=== PATIENT | male | born 1960 | race Two or more races ===

== ENCOUNTER → 2017-06-28 | Outpatient (REF) | payer BC ==
[2017-06-28 12:48] LABS: MEAN CORPUSCULAR HEMOGLOBIN 29.5 pg (27.0-33.0); MEAN CORPUSCULAR HGB CONC 33.3 g/dl (32.0-36.5); MEAN CORPUSCULAR VOLUME 88.7 fl (80.0-96.0); RED CELL DISTRIBUTION WIDTH 12.8 % (11.5-14.5); WHITE BLOOD COUNT 4.9 10^3/uL (4.0-10.0)
[2017-06-28 13:45] LABS: ALBUMIN/GLOBULIN RATIO 1.25 (1.00-1.93); ALKALINE PHOSPHATASE 108 U/L (45-117); ALT/SGPT 41 U/L (12-78); ANION GAP 4 MEQ/L (8-16); AST/SGOT 23 U/L (15-37); BILIRUBIN,TOTAL 0.7 MG/DL (0.2-1.0); BLOOD UREA NITROGEN 22 MG/DL (7-18); CALCIUM LEVEL 9.4 MG/DL (8.5-10.1); CARBON DIOXIDE LEVEL 32 MEQ/L (21-32); CHLORIDE LEVEL 107 MEQ/L (98-107); CHOLESTEROL LEVEL 217 MG/DL (<200); CREATININE FOR GFR 1.22 MG/DL (0.70-1.30); FREE T4 0.87 NG/DL (0.76-1.46); GLOMERULAR FILTRATION RATE > 60.0 (>56); GLUCOSE, FASTING 106 MG/DL (70-105); POTASSIUM SERUM 4.3 MEQ/L (3.5-5.1); SODIUM LEVEL 143 MEQ/L (136-145); TOTAL PROTEIN 7.2 GM/DL (6.4-8.2); TRIGLYCERIDES LEVEL 223 MG/DL (<150)
== END ==
LOC: M SFHCADAM 09:48
PROVIDERS: ATTEND Physician Assistant
DX: I10 Essential (primary) hypertension (principal); R10.13 Epigastric pain; Z13.220 Encounter for screening for lipoid disorders

== ENCOUNTER 2017-08-15 10:57 | Day surgery (SDC) | payer BC ==
[~2017-08-15] VITALS: Ht 172.7 cm; Wt 81.2 kg
[~2017-08-15 10:57] MED LIST: AMLO25TA PO; ATOR40TA75 PO
[2017-08-15] MEDS ORDERED: NS 1,000 ML IV ONE (11:15)
[2017-08-15] MEDS ORDERED: fentaNYL 100 MCG/2 ML INJECTION (J3010) As Ordered ONE (11:30)
[2017-08-15] MEDS ORDERED: LIDOCAINE 2% INJ 100 MG/5 ML SDV (FOR ANES.) As Ordered ONE (11:31)
[2017-08-15] MEDS ORDERED: PROPOFOL 200 MG/20 ML VIAL As Ordered ONE ×2 (11:31→11:57)
--- NOTE | 2017-08-15 11:49 | ROOR ---
Patient Name: Alex Berman Procedure Date: 08/15/2017 11:24 AM Date of : 1960 Age: 57 Room: [facility] Gender: Male Note Status: Finalized Procedure: Upper GI endoscopy Indications: Heartburn Providers: Randy AVENDAÑO MD Referring MD: DEAN Dominguez Requesting Provider: Medicines: Monitored Anesthesia Care Complications: No immediate complications. Procedure: Pre-Anesthesia Assessment: - The heart rate, respiratory rate, oxygen saturations, blood pressure, adequacy of pulmonary ventilation, and response to care were monitored throughout the procedure. The Endoscope was introduced through the mouth, and advanced to the second part of duodenum. The upper GI endoscopy was accomplished without difficulty. The patient tolerated the procedure well. Findings: There were esophageal mucosal changes suspicious for long-segment Pruitt's esophagus present in the lower third of the esophagus. The maximum longitudinal extent of these mucosal changes was 5 cm in length. Mucosa was biopsied with a cold forceps for histology randomly in the lower third of the esophagus and from 28 to 33 cm from the incisors. A total of 4 specimen bottles were sent to pathology. A medium-sized hiatal hernia was present. The entire examined stomach was normal. The examined duodenum was normal. Impression: - Esophageal mucosal changes suspicious for 5 cm long-segment Pruitt's esophagus. (smooth, no nodularity) Biopsied. - Medium-sized hiatal hernia. - Normal stomach. - Normal examined duodenum. Recommendation: - Use Prilosec (omeprazole) 20 mg twice a day for the rest of the patient's life. - Telephone endoscopist for pathology results in 2 weeks. - Repeat upper endoscopy in 3 years for surveillance. - (the script was sent to your pharmacy on file) Randy Avendaño MD Randy AVENDAÑO MD 08/15/2017 11:48:21 AM This report has been signed electronically. Number of Addenda: 0 Note Initiated On: 08/15/2017 11:24 AM Estimated Blood Loss: Estimated blood loss: none.
--- NOTE | 2017-08-15 12:01 | ROOR ---
Patient Name: Alex Berman Procedure Date: 08/15/2017 11:25 AM Date of : 1960 Age: 57 Room: [facility] Gender: Male Note Status: Finalized Procedure: Colonoscopy Indications: Screening for colorectal malignant neoplasm Providers: Randy JUDGE MD Referring MD: DEAN Dominguez Requesting Provider: Medicines: Monitored Anesthesia Care Complications: No immediate complications. Procedure: Pre-Anesthesia Assessment: - The heart rate, respiratory rate, oxygen saturations, blood pressure, adequacy of pulmonary ventilation, and response to care were monitored throughout the procedure. The Colonoscope was introduced through the anus and advanced to the cecum, identified by appendiceal orifice and ileocecal valve. The colonoscopy was performed without difficulty. The patient tolerated the procedure well. The quality of the bowel preparation was good. Findings: The perianal and digital rectal examinations were normal. Three sessile polyps were found in the hepatic flexure and ascending colon. The polyps were 3 to 5 mm in size. These polyps were removed with a cold snare. Resection and retrieval were complete. A 4 mm polyp was found in the sigmoid colon. The polyp was sessile. The polyp was removed with a cold snare. Resection and retrieval were complete. Small Internal Hemorrhoids. The exam was otherwise without abnormality on direct and retroflexion views. Impression: - Three 3 to 5 mm polyps at the hepatic flexure and in the ascending colon, removed with a cold snare. Resected and retrieved. - One 4 mm polyp in the sigmoid colon, removed with a cold snare. Resected and retrieved. - Small Internal Hemorrhoids. - The examination was otherwise normal on direct and retroflexion views. Recommendation: - Repeat colonoscopy in 3 years for surveillance. Randy Judge MD Randy JUDGE MD 08/15/2017 12:00:58 PM This report has been signed electronically. Number of Addenda: 0 Note Initiated On: 08/15/2017 11:25 AM Estimated Blood Loss: Estimated blood loss: none.
[2017-08-15 12:20] VITALS: BP 132/87
== END 2017-08-15 12:35 | disposition home or self-care (01) ==
LOC: M OPP 10:57
PROVIDERS: ATTEND Internal Medicine Gastroenterology
DX: Z12.11 Encounter for screening for malignant neoplasm of colon (principal); D12.2 Benign neoplasm of ascending colon; D12.3 Benign neoplasm of transverse colon; D12.5 Benign neoplasm of sigmoid colon; K64.8 Other hemorrhoids; R12 Heartburn; K44.9 Diaphragmatic hernia without obstruction or gangrene; I10 Essential (primary) hypertension; E78.5 Hyperlipidemia, unspecified; K21.9 Gastro-esophageal reflux disease without esophagitis; M19.90 Unspecified osteoarthritis, unspecified site; Z79.899 Other long term (current) drug therapy; Z80.3 Family history of malignant neoplasm of breast
CPT/HCPCS: 43239; 45385; 88305; J3010

== ENCOUNTER → 2018-05-04 | Outpatient (REF) | payer BC ==
[2018-05-04 12:18] LABS: HEMATOCRIT 43.2 % (42.0-52.0); HEMOGLOBIN 14.5 g/dl (13.5-17.5); MEAN CORPUSCULAR HEMOGLOBIN 29.3 pg (27.0-33.0); MEAN CORPUSCULAR HGB CONC 33.6 g/dl (32.0-36.5); MEAN CORPUSCULAR VOLUME 87.3 fl (80.0-96.0); PLATELET COUNT, AUTOMATED 172 10^3/uL (150-450); RED BLOOD COUNT 4.95 10^6/uL (4.30-6.10); WHITE BLOOD COUNT 4.2 10^3/uL (4.0-10.0)
[2018-05-04 12:55] LABS: ALBUMIN 3.8 GM/DL (3.2-5.2); ALBUMIN/GLOBULIN RATIO 1.36 (1.00-1.93); ALKALINE PHOSPHATASE 141 U/L (45-117); ALT/SGPT 36 U/L (12-78); ANION GAP 8 MEQ/L (8-16); AST/SGOT 22 U/L (7-37); BILIRUBIN,TOTAL 1.3 MG/DL (0.2-1.0); BLOOD UREA NITROGEN 25 MG/DL (7-18); CALCIUM LEVEL 8.5 MG/DL (8.5-10.1); CARBON DIOXIDE LEVEL 29 MEQ/L (21-32); CHLORIDE LEVEL 107 MEQ/L (98-107); CHOLESTEROL LEVEL 106 MG/DL (<200); CHOLESTEROL RISK RATIO 3.028 (<5); CREATININE FOR GFR 1.36 MG/DL (0.70-1.30); GLOMERULAR FILTRATION RATE 57.5 (>56); GLUCOSE, FASTING 101 MG/DL (70-100); HDL CHOLESTEROL 35 MG/DL (>40); LDL CHOLESTEROL 45.6 MG/DL (<100); NON-HDL-C 71 MG/DL; POTASSIUM SERUM 3.9 MEQ/L (3.5-5.1); SODIUM LEVEL 144 MEQ/L (136-145); TOTAL PROTEIN 6.6 GM/DL (6.4-8.2); TRIGLYCERIDES LEVEL 127 MG/DL (<150)
== END ==
LOC: M SFHCADAM 09:45
DX: I10 Essential (primary) hypertension (principal); K21.9 Gastro-esophageal reflux disease without esophagitis; E78.00 Pure hypercholesterolemia, unspecified
CPT/HCPCS: 80053

== ENCOUNTER → 2018-10-18 | Outpatient (REF) | payer BC ==
[2018-10-18 12:51] LABS: HEMATOCRIT 44.4 % (42.0-52.0); HEMOGLOBIN 14.6 g/dl (13.5-17.5); MEAN CORPUSCULAR HEMOGLOBIN 28.7 pg (27.0-33.0); MEAN CORPUSCULAR HGB CONC 32.9 g/dl (32.0-36.5); MEAN CORPUSCULAR VOLUME 87.2 fl (80.0-96.0); PLATELET COUNT, AUTOMATED 189 10^3/uL (150-450); RED BLOOD COUNT 5.09 10^6/uL (4.30-6.10); WHITE BLOOD COUNT 4.8 10^3/uL (4.0-10.0)
[2018-10-18 13:28] LABS: MALB URINE SIEMENS 22.2 MG/L; MAU/CREAT RATIO 11.9 MCG/MG (0.0-30.0)
[2018-10-18 13:37] LABS: BILIRUBIN,TOTAL 1.3 MG/DL (0.2-1.0); CALCIUM LEVEL 8.6 MG/DL (8.5-10.1); CREATININE FOR GFR 1.43 MG/DL (0.70-1.30); GLOMERULAR FILTRATION RATE 54.3 (>56); POTASSIUM SERUM 4.1 MEQ/L (3.5-5.1); TOTAL 25(OH) VITAMIN D 22.1 NG/ML (30.0-100.0)
== END ==
LOC: M SFHCADAM 07:53
PROVIDERS: ATTEND Physician Assistant
DX: I10 Essential (primary) hypertension (principal); R79.89 Other specified abnormal findings of blood chemistry; R74.8 Abnormal levels of other serum enzymes; K22.70 Barrett's esophagus without dysplasia; E78.00 Pure hypercholesterolemia, unspecified

== ENCOUNTER → 2019-05-22 | Outpatient (REF) | payer BC ==
[2019-05-22 14:02] LABS: ALBUMIN 3.8 GM/DL (3.2-5.2); BILIRUBIN,TOTAL 1.1 MG/DL (0.2-1.0); CHOLESTEROL RISK RATIO 3.527 (<5); CREATININE FOR GFR 1.45 MG/DL (0.70-1.30); GLOMERULAR FILTRATION RATE 53.2 (>56); POTASSIUM SERUM 3.9 MEQ/L (3.5-5.1); TOTAL 25(OH) VITAMIN D 24.9 NG/ML (30.0-100.0); TOTAL PROTEIN 6.7 GM/DL (6.4-8.2)
== END ==
LOC: M SFHCADAM 09:55
PROVIDERS: ATTEND Physician Assistant
DX: N18.2 Chronic kidney disease, stage 2 (mild) (principal); E78.00 Pure hypercholesterolemia, unspecified; E55.9 Vitamin D deficiency, unspecified

== ENCOUNTER → 2020-01-17 | Outpatient (REF) | payer BC ==
[2020-01-17 17:40] LABS: ALBUMIN 3.9 GM/DL (3.2-5.2); ALT/SGPT 45 U/L (12-78); BILIRUBIN,TOTAL 1.5 MG/DL (0.2-1.0); BLOOD UREA NITROGEN 16 MG/DL (7-18); CALCIUM LEVEL 8.8 MG/DL (8.5-10.1); CARBON DIOXIDE LEVEL 32 MEQ/L (21-32); CHLORIDE LEVEL 105 MEQ/L (98-107); CREATININE FOR GFR 1.27 MG/DL (0.70-1.30); GLOMERULAR FILTRATION RATE > 60.0 (>56); GLUCOSE, FASTING 114 MG/DL (70-100); POTASSIUM SERUM 3.7 MEQ/L (3.5-5.1); SODIUM LEVEL 142 MEQ/L (136-145); TOTAL PROTEIN 6.9 GM/DL (6.4-8.2)
[2020-01-17 17:45] LABS: HEMATOCRIT 43.6 % (42.0-52.0); HEMOGLOBIN 14.7 g/dl (13.5-17.5); MEAN CORPUSCULAR HEMOGLOBIN 28.9 pg (27.0-33.0); MEAN CORPUSCULAR HGB CONC 33.7 g/dl (32.0-36.5); MEAN CORPUSCULAR VOLUME 85.8 fl (80.0-96.0); PLATELET COUNT, AUTOMATED 161 10^3/uL (150-450); RED BLOOD COUNT 5.08 10^6/uL (4.30-6.10); WHITE BLOOD COUNT 5.3 10^3/uL (4.0-10.0)
[2020-01-17 18:11] LABS: CREATININE, URINE 84.8 MG/DL; MALB URINE SIEMENS 15.7 MG/L; MAU/CREAT RATIO 18.5 MCG/MG (0.0-30.0)
== END ==
LOC: M SFHCADAM 09:12
PROVIDERS: ATTEND Physician Assistant
DX: I12.9 Hypertensive chronic kidney disease with stage 1 through stage 4 chronic kidney disease, or unspecified chronic kidney disease (principal); N18.2 Chronic kidney disease, stage 2 (mild); Z12.5 Encounter for screening for malignant neoplasm of prostate
CPT/HCPCS: 80053; 82043; 83036; 85027; G0103

== ENCOUNTER → 2020-10-11 | Outpatient (CLI) | payer BC ==
[~2020-10-11] MED LIST changes: +OMEP-218
== END ==
LOC: M LABSMTC 09:55
PROVIDERS: ATTEND Anesthesiology
DX: Z01.812 Encounter for preprocedural laboratory examination (principal); Z20.822 Contact with and (suspected) exposure to COVID-19

== ENCOUNTER 2020-10-16 11:27 | Day surgery (SDC) | payer BC ==
[~2020-10-16] VITALS: Ht 172.7 cm; Wt 86.8 kg
[~2020-10-16 11:27] MED LIST changes: +NS 1,000 ML IV ONE
[2020-10-16] MEDS ORDERED: LIDOCAINE 2% 100MG/5ML SDV (FOR ANES.) As Ordered ONE (13:48)
[2020-10-16] MEDS ORDERED: propofoL 200 MG/20 ML VIAL As Ordered ONE (13:48)
[2020-10-16] MEDS ORDERED: fentaNYL 100 MCG/2 ML INJECTION (J3010) As Ordered ONE (13:48)
--- NOTE | 2020-10-16 14:10 | ROOR ---
Patient Name: Alex Berman Procedure Date: 10/16/2020 1:48 PM Date of : 1960 Age: 60 Room: [facility] Gender: Male Note Status: Finalized Procedure: Upper GI endoscopy Indications: Surveillance for malignancy due to personal history of Pruitt's esophagus Providers: Randy AVENDAÑO MD Referring MD: DEAN Dominguez Requesting Provider: Medicines: Monitored Anesthesia Care Complications: No immediate complications. Procedure: Pre-Anesthesia Assessment: - The heart rate, respiratory rate, oxygen saturations, blood pressure, adequacy of pulmonary ventilation, and response to care were monitored throughout the procedure. The Endoscope was introduced through the mouth, and advanced to the second part of duodenum. The upper GI endoscopy was accomplished without difficulty. The patient tolerated the procedure well. Findings: There were esophageal mucosal changes consistent with long-segment Pruitt's esophagus present in the lower third of the esophagus. The maximum longitudinal extent of these mucosal changes was 5 cm in length. Mucosa was biopsied with a cold forceps for histology randomly at intervals of 1.5 cm from 30 to 35 cm from the incisors. A total of 4 specimen bottles were sent to pathology. A medium-sized hiatal hernia was present. A single 6 mm semi-sessile polyp was found in the cardia. Biopsies were taken with a cold forceps for histology. The exam was otherwise without abnormality. Impression: - Esophageal mucosal changes consistent with long-segment Pruitt's esophagus. (smooth, no nodulrity) Biopsied. - Medium-sized hiatal hernia. - A single gastric (cardia) polyp. Biopsied. - The examination was otherwise normal. Recommendation: - Telephone endoscopist for pathology results in 2 weeks. - Repeat upper endoscopy for surveillance based on pathology results. - Continue present medications. - Use Prilosec (omeprazole) 20 mg PO BID indefinitely. Procedure Code(s): --- Professional --- 16452, Esophagogastroduodenoscopy, flexible, transoral; with biopsy, single or multiple Diagnosis Code(s): --- Professional --- K31.7, Polyp of stomach and duodenum K44.9, Diaphragmatic hernia without obstruction or gangrene K22.70, Pruitt's esophagus without dysplasia CPT copyright 2019 [employer]. All rights reserved. The codes documented in this report are preliminary and upon sleeve presser operator review may be revised to meet current compliance requirements. Randy Avendaño MD Randy AVENDAÑO MD 10/16/2020 2:10:17 PM Electronically signed by Randy AVENDAÑO MD Number of Addenda: 0 Note Initiated On: 10/16/2020 1:48 PM Estimated Blood Loss: Estimated blood loss: none.
--- NOTE | 2020-10-16 14:21 | ROOR ---
Patient Name: Alex Berman Procedure Date: 10/16/2020 1:49 PM Date of : 1960 Age: 60 Room: [facility] Gender: Male Note Status: Finalized Procedure: Colonoscopy Indications: High risk colon cancer surveillance: Personal history of colonic polyps, Last colonoscopy: August 2017 Providers: Randy JUDGE MD Referring MD: DEAN Dominguez Requesting Provider: Medicines: Monitored Anesthesia Care Complications: No immediate complications. Procedure: Pre-Anesthesia Assessment: - The heart rate, respiratory rate, oxygen saturations, blood pressure, adequacy of pulmonary ventilation, and response to care were monitored throughout the procedure. The Colonoscope was introduced through the anus and advanced to the terminal ileum, with identification of the appendiceal orifice and IC valve. The colonoscopy was performed without difficulty. The patient tolerated the procedure well. The quality of the bowel preparation was good. Findings: The perianal and digital rectal examinations were normal. Mild sigmoid diverticulosis and small internal hemorrhoids. The exam was otherwise without abnormality on direct and retroflexion views. Impression: - Mild sigmoid diverticulosis and small internal hemorrhoids. - The examination was otherwise normal on direct and retroflexion views. - No specimens collected. Recommendation: - Repeat colonoscopy in 5 years for surveillance. Procedure Code(s): --- Professional --- 13768, Colonoscopy, flexible; diagnostic, including collection of specimen(s) by brushing or washing, when performed (separate procedure) Diagnosis Code(s): --- Professional --- Z86.010, Personal history of colonic polyps CPT copyright 2019 [employer]. All rights reserved. The codes documented in this report are preliminary and upon supervisor asbestos textile review may be revised to meet current compliance requirements. Randy Judge MD Randy JUDGE MD 10/16/2020 2:21:18 PM Electronically signed by Randy JUDGE MD Number of Addenda: 0 Note Initiated On: 10/16/2020 1:49 PM Estimated Blood Loss: Estimated blood loss: none.
[2020-10-16 14:40] VITALS: BP 134/80
== END 2020-10-16 14:51 | disposition home or self-care (01) ==
LOC: M OPP 11:27
PROVIDERS: ATTEND Internal Medicine Gastroenterology
DX: Z12.11 Encounter for screening for malignant neoplasm of colon (principal); Z86.010 Personal history of colon polyps; K22.70 Barrett's esophagus without dysplasia; K63.5 Polyp of colon; K57.30 Diverticulosis of large intestine without perforation or abscess without bleeding; K64.8 Other hemorrhoids; D13.0 Benign neoplasm of esophagus; K44.9 Diaphragmatic hernia without obstruction or gangrene; I10 Essential (primary) hypertension; E78.5 Hyperlipidemia, unspecified; R12 Heartburn; M19.90 Unspecified osteoarthritis, unspecified site; G47.30 Sleep apnea, unspecified; Z79.899 Other long term (current) drug therapy; Z83.3 Family history of diabetes mellitus; Z80.3 Family history of malignant neoplasm of breast
CPT/HCPCS: 43239; 45378; 88305; J3010

== ENCOUNTER → 2020-12-04 | Outpatient (REF) | payer BC ==
[~2020-12-04] MED LIST changes: -NS 1,000 ML IV ONE
== END ==
LOC: M SFHCADAM 15:58
PROVIDERS: ATTEND Physician Assistant
DX: I10 Essential (primary) hypertension (principal); K21.9 Gastro-esophageal reflux disease without esophagitis; E78.00 Pure hypercholesterolemia, unspecified; K22.70 Barrett's esophagus without dysplasia; R73.03 Prediabetes

== ENCOUNTER → 2020-12-05 | Outpatient (REF) | payer BC ==
[2020-12-05 16:39] LABS: HEMATOCRIT 41.5 % (42.0-52.0); HEMOGLOBIN 13.6 g/dl (13.5-17.5); MEAN CORPUSCULAR HEMOGLOBIN 28.7 pg (27.0-33.0); MEAN CORPUSCULAR HGB CONC 32.8 g/dl (32.0-36.5); MEAN CORPUSCULAR VOLUME 87.6 fl (80.0-96.0); PLATELET COUNT, AUTOMATED 219 10^3/uL (150-450); RED BLOOD COUNT 4.74 10^6/uL (4.30-6.10); WHITE BLOOD COUNT 4.5 10^3/uL (4.0-10.0)
[2020-12-05 16:55] LABS: HEMOGLOBIN A1c 7.5 %
[2020-12-05 17:23] LABS: ALBUMIN 3.3 GM/DL (3.2-5.2); ALT/SGPT 46 U/L (12-78); BILIRUBIN,TOTAL 0.9 MG/DL (0.2-1.0); BLOOD UREA NITROGEN 15 MG/DL (7-18); CALCIUM LEVEL 8.2 MG/DL (8.5-10.1); CARBON DIOXIDE LEVEL 32 MEQ/L (21-32); CHLORIDE LEVEL 104 MEQ/L (98-107); CHOLESTEROL LEVEL 102 MG/DL (<200); CREATININE FOR GFR 1.15 MG/DL (0.70-1.30); FREE T4 0.99 NG/DL (0.76-1.46); GLOMERULAR FILTRATION RATE > 60.0 (>56); GLUCOSE, FASTING 133 MG/DL (70-100); HDL CHOLESTEROL 25 MG/DL (>40); LDL CHOLESTEROL 34 MG/DL (<100); NON-HDL-C 77 MG/DL; POTASSIUM SERUM 3.3 MEQ/L (3.5-5.1); SODIUM LEVEL 139 MEQ/L (136-145); TOTAL 25(OH) VITAMIN D 34.8 NG/ML (30.0-100.0); TOTAL PROTEIN 6.4 GM/DL (6.4-8.2); TRIGLYCERIDES LEVEL 215 MG/DL (<150)
[2020-12-05 17:25] LABS: CREATININE, URINE 47.8 MG/DL; MALB URINE SIEMENS 8.8 MG/L; MAU/CREAT RATIO 18.4 MCG/MG (0.0-30.0)
== END ==
LOC: M SFHCADAM 14:47
PROVIDERS: ATTEND Physician Assistant
DX: R73.03 Prediabetes (principal); I10 Essential (primary) hypertension; K21.9 Gastro-esophageal reflux disease without esophagitis; E78.00 Pure hypercholesterolemia, unspecified; K22.70 Barrett's esophagus without dysplasia

== ENCOUNTER → 2021-03-23 | Outpatient (REF) | payer BC ==
[2021-03-23 17:48] LABS: BLOOD UREA NITROGEN 18 MG/DL (7-18); CALCIUM LEVEL 8.6 MG/DL (8.8-10.2); CARBON DIOXIDE LEVEL 30 MEQ/L (21-32); CHLORIDE LEVEL 104 MEQ/L (98-107); CREATININE FOR GFR 1.27 MG/DL (0.70-1.30); GLOMERULAR FILTRATION RATE > 60.0 (>49); GLUCOSE, FASTING 113 MG/DL (70-100); POTASSIUM SERUM 3.2 MEQ/L (3.5-5.1); SODIUM LEVEL 141 MEQ/L (136-145)
[2021-03-23 18:15] LABS: HEMOGLOBIN A1c 6.8 %
== END ==
LOC: M SFHCADAM 14:50
PROVIDERS: ATTEND Physician Assistant
DX: E11.9 Type 2 diabetes mellitus without complications (principal)

== ENCOUNTER → 2022-10-27 | Outpatient (REF) | payer BC ==
[~2022-10-27] MED LIST changes: +OMEP-173; -OMEP-218
[2022-10-27 13:23] LABS: HEMATOCRIT 43.9 % (42.0-52.0); HEMOGLOBIN 14.1 g/dl (13.5-17.5); MEAN CORPUSCULAR HEMOGLOBIN 28.2 pg (27.0-33.0); MEAN CORPUSCULAR HGB CONC 32.1 g/dl (32.0-36.5); MEAN CORPUSCULAR VOLUME 87.8 fl (80.0-96.0); PLATELET COUNT, AUTOMATED 149 10^3/uL (150-450); WHITE BLOOD COUNT 4.2 10^3/uL (4.0-10.0)
[2022-10-27 14:15] LABS: ALBUMIN 3.8 G/DL (3.2-5.2); ALKALINE PHOSPHATASE 138 U/L (46-116); ALT/SGPT 32 U/L (7.0-40); AST/SGOT 31 U/L (<34); BILIRUBIN,TOTAL 1.7 MG/DL (0.3-1.2); BLOOD UREA NITROGEN 20 MG/DL (9-23); CARBON DIOXIDE LEVEL 32 MMOL/L (20-31); CHLORIDE LEVEL 104 MMOL/L (98-107); CHOLESTEROL LEVEL 109 MG/DL (<200); CHOLESTEROL RISK RATIO 3.41 (<5); CREATININE FOR GFR 1.21 MG/DL (0.70-1.30); GLOMERULAR FILTRATION RATE > 60.0 (>49); GLUCOSE, FASTING 159 MG/DL (74-106); HDL CHOLESTEROL 31.9 MG/DL (>40); NON-HDL-C 77 MG/DL; SODIUM LEVEL 142 MMOL/L (136-145); THYROID STIMULATING HORMONE 1.708 uIU/ML (0.55-4.78); VITAMIN B12 LEVEL 470 PG/ML (211-911)
[2022-10-27 15:35] LABS: HEMOGLOBIN A1c 8.1 % (4.0-6.0)
[2022-10-27 21:38] LABS: FOLATE 7.1 NG/ML (>5.4); LDL CHOLESTEROL 57.9 MG/DL (<100); TOTAL PROTEIN 6.6 G/DL (5.7-8.2); TRIGLYCERIDES LEVEL 96 MG/DL (<150)
== END ==
LOC: M SFHCADAM 08:33
PROVIDERS: ATTEND Physician Assistant
DX: E11.9 Type 2 diabetes mellitus without complications (principal); I10 Essential (primary) hypertension; K21.9 Gastro-esophageal reflux disease without esophagitis; K22.70 Barrett's esophagus without dysplasia; Z12.5 Encounter for screening for malignant neoplasm of prostate

== ENCOUNTER → 2023-04-22 | Outpatient (REF) | payer BC ==
[2023-04-22 17:15] LABS: HEMOGLOBIN A1c 6.4 % (4.0-6.0)
[2023-04-22 17:37] LABS: ALKALINE PHOSPHATASE 138 U/L (46-116); ALT/SGPT 24 U/L (7.0-40); AST/SGOT 16 U/L (<34); BILIRUBIN,TOTAL 1.8 MG/DL (0.3-1.2); BLOOD UREA NITROGEN 23 MG/DL (9-23); CALCIUM LEVEL 9.1 MG/DL (8.3-10.6); CARBON DIOXIDE LEVEL 30 MMOL/L (20-31); CHLORIDE LEVEL 105 MMOL/L (98-107); CHOLESTEROL LEVEL 94 MG/DL (<200); CHOLESTEROL RISK RATIO 2.68 (<5); CREATININE FOR GFR 1.22 MG/DL (0.70-1.30); GLOMERULAR FILTRATION RATE > 60.0 (>49); GLUCOSE, FASTING 120 MG/DL (74-106); LDL CHOLESTEROL 31.4 MG/DL (<100); POTASSIUM SERUM 3.7 MMOL/L (3.5-5.1); SODIUM LEVEL 141 MMOL/L (136-145); TOTAL PROTEIN 6.6 G/DL (5.7-8.2); TRIGLYCERIDES LEVEL 138 MG/DL (<150)
== END ==
LOC: M SFHCADAM 14:51
PROVIDERS: ATTEND Physician Assistant
DX: E11.9 Type 2 diabetes mellitus without complications (principal)

== ENCOUNTER → 2023-08-10 | Outpatient (REF) | payer BC ==
[2023-08-10 17:51] LABS: BLOOD UREA NITROGEN 22 MG/DL (9-23); CALCIUM LEVEL 8.6 MG/DL (8.3-10.6); CARBON DIOXIDE LEVEL 32 MMOL/L (20-31); CHLORIDE LEVEL 107 MMOL/L (98-107); CREATININE FOR GFR 1.09 MG/DL (0.70-1.30); GLOMERULAR FILTRATION RATE > 60.0 (>49); GLUCOSE, FASTING 102 MG/DL (74-106); SODIUM LEVEL 145 MMOL/L (136-145)
[2023-08-10 18:21] LABS: HEMOGLOBIN A1c 6.2 % (4.0-6.0)
== END ==
LOC: M SFHCADAM 14:45
PROVIDERS: ATTEND Physician Assistant
DX: E11.9 Type 2 diabetes mellitus without complications (principal)

== ENCOUNTER → 2023-12-14 | Outpatient (REF) | payer BC ==
[2023-12-14 17:49] LABS: HEMATOCRIT 45.8 % (42.0-52.0); HEMOGLOBIN 15.2 g/dl (13.5-17.5); MEAN CORPUSCULAR HEMOGLOBIN 28.8 pg (27.0-33.0); MEAN CORPUSCULAR HGB CONC 33.2 g/dl (32.0-36.5); MEAN CORPUSCULAR VOLUME 86.7 fl (80.0-96.0); PLATELET COUNT, AUTOMATED 161 10^3/uL (150-450); RED BLOOD COUNT 5.28 10^6/uL (4.30-6.10); WHITE BLOOD COUNT 5.6 10^3/uL (4.0-10.0)
[2023-12-14 18:22] LABS: ALBUMIN 3.8 G/DL (3.2-5.2); ALKALINE PHOSPHATASE 137 U/L (46-116); ALT/SGPT 27 U/L (7.0-40); AST/SGOT 18 U/L (<34); BILIRUBIN,TOTAL 1.4 MG/DL (0.3-1.2); BLOOD UREA NITROGEN 26 MG/DL (9-23); CALCIUM LEVEL 9.3 MG/DL (8.3-10.6); CARBON DIOXIDE LEVEL 28 MMOL/L (20-31); CHLORIDE LEVEL 108 MMOL/L (98-107); CREATININE FOR GFR 1.07 MG/DL (0.70-1.30); FOLATE 14.6 NG/ML (>5.4); FREE T4 0.86 NG/DL (0.89-1.76); GLOMERULAR FILTRATION RATE > 60.0 (>49); GLUCOSE, FASTING 106 MG/DL (74-106); POTASSIUM SERUM 3.9 MMOL/L (3.5-5.1); PSA SCREENING 0.73 NG/ML (< 4.00); SODIUM LEVEL 142 MMOL/L (136-145); THYROID STIMULATING HORMONE 1.642 uIU/ML (0.55-4.78); TOTAL PROTEIN 6.6 G/DL (5.7-8.2)
[2023-12-14 18:23] LABS: VITAMIN B12 LEVEL 518 PG/ML (211-911)
== END ==
LOC: M SFHCADAM 15:18
PROVIDERS: ATTEND Physician Assistant
DX: E11.9 Type 2 diabetes mellitus without complications (principal); I10 Essential (primary) hypertension; K22.70 Barrett's esophagus without dysplasia; Z12.5 Encounter for screening for malignant neoplasm of prostate

== ENCOUNTER 2024-02-23 08:18 | Day surgery (SDC) | payer BC ==
[~2024-02-23] VITALS: Ht 172.7 cm; Wt 84.9 kg
[~2024-02-23 08:18] MED LIST changes: +AMLO1TAB24 PO; +FARX1TAB3 PO; +METF-838 PO; -OMEP-173; +OMEP-173 PO
[2024-02-23] MEDS: NS 1,000 ML IV ONE (08:47)
[2024-02-23] MEDS ORDERED: fentaNYL 100 MCG/2 ML INJECTION As Ordered ONE (09:19)
[2024-02-23] MEDS ORDERED: propofoL 200 MG/20 ML VIAL As Ordered ONE (09:19)
[2024-02-23] MEDS ORDERED: GLYCOPYRROLATE INJ 0.2 MG/ML 2 ML VIAL As Ordered ONE (09:19)
[2024-02-23] MEDS ORDERED: LIDOCAINE 2% 100MG/5ML SDV (FOR ANES.) As Ordered ONE (09:19)
[2024-02-23 10:12] VITALS: BP 124/82; O2SAT 95
== END 2024-02-23 10:20 | disposition home or self-care (01) ==
LOC: M OPP 08:18
PROVIDERS: ATTEND Internal Medicine Gastroenterology
DX: K22.70 Barrett's esophagus without dysplasia (principal); K44.9 Diaphragmatic hernia without obstruction or gangrene; G47.30 Sleep apnea, unspecified; I10 Essential (primary) hypertension; E11.9 Type 2 diabetes mellitus without complications; Z79.02 Long term (current) use of antithrombotics/antiplatelets; Z79.84 Long term (current) use of oral hypoglycemic drugs; Z79.899 Other long term (current) drug therapy
CPT/HCPCS: 43239; 88305; J3010

== ENCOUNTER → 2024-07-02 | Outpatient (REF) | payer BC ==
[2024-07-02 19:15] LABS: ALBUMIN 3.8 G/DL (3.2-5.2); ALKALINE PHOSPHATASE 161 U/L (46-116); ALT/SGPT 20 U/L (7.0-40); AST/SGOT 15 U/L (<34); BILIRUBIN,TOTAL 1.8 MG/DL (0.3-1.2); BLOOD UREA NITROGEN 24 MG/DL (9-23); CALCIUM LEVEL 9.6 MG/DL (8.3-10.6); CARBON DIOXIDE LEVEL 31 MMOL/L (20-31); CHLORIDE LEVEL 108 MMOL/L (98-107); CREATININE FOR GFR 1.21 MG/DL (0.70-1.30); GLOMERULAR FILTRATION RATE > 60.0 (>49); GLUCOSE, FASTING 111 MG/DL (74-106); POTASSIUM SERUM 3.5 MMOL/L (3.5-5.1); SODIUM LEVEL 143 MMOL/L (136-145); TOTAL PROTEIN 6.9 G/DL (5.7-8.2)
[2024-07-02 19:34] LABS: HEMOGLOBIN A1c 7.3 % (4.0-6.0)
== END ==
LOC: M SFHCADAM 14:47
PROVIDERS: ATTEND Physician Assistant
DX: I10 Essential (primary) hypertension (principal); E11.9 Type 2 diabetes mellitus without complications; K22.70 Barrett's esophagus without dysplasia; Z12.5 Encounter for screening for malignant neoplasm of prostate

== ENCOUNTER → 2024-10-15 | Outpatient (REF) | payer BC ==
[2024-10-15 18:02] LABS: HEMOGLOBIN A1c 7.1 % (4.0-6.0)
[2024-10-15 18:07] LABS: ALBUMIN 3.9 G/DL (3.2-5.2); BILIRUBIN,TOTAL 1.8 MG/DL (0.3-1.2); CALCIUM LEVEL 8.8 MG/DL (8.3-10.6); CREATININE FOR GFR 1.3 MG/DL (0.70-1.30); GLOMERULAR FILTRATION RATE 59.4 (>49); POTASSIUM SERUM 4.1 MMOL/L (3.5-5.1); TOTAL PROTEIN 6.7 G/DL (5.7-8.2)
== END ==
LOC: M SFHCADAM 14:50
PROVIDERS: ATTEND Physician Assistant
DX: E11.9 Type 2 diabetes mellitus without complications (principal)